=== PATIENT | male | born 1970 | race Caucasian/White ===

== ENCOUNTER 2016-10-26 16:33 | Outpatient (CLI) | payer BC ==
--- NOTE | 2016-10-26 17:24 | DIAGNOSTIC IMAGING REPORT ---
PROCEDURE: XR SHOULDER 2 OR MORE VW-RIGHT INDICATION: RIGHT SHOULDER PX 3 MONTHS TECHNIQUE: Three views. COMPARISON: None. FINDINGS: Osseous structures and joint spaces are normal. IMPRESSION: 1. Normal right shoulder.
== END 2016-10-26 23:00 ==
LOC: XR SRH 16:33
DX: M25.511 Pain in right shoulder (principal)